=== PATIENT | female | born 1990 | race African-American/Black ===

== ENCOUNTER 2022-06-08 13:05 | Inpatient (IN) | payer OTHER ==
[2022-06-08] MEDS: DEXTROSE 5%-LACTATED RINGERS 1,000 ML IV SCH ×2 (14:30→17:00)
[2022-06-08 15:06] VITALS: BMI 40.1
[2022-06-08 15:20] LABS: BASO % 0.5 % (0-2.0); EOS % 0.3 % (0-4.5); HEMATOCRIT 39.8 % (32.4-45.2); HEMOGLOBIN 13.5 GM/dL (10.7-15.3); LYMPH % 13.2 % (8-40); MCH 30.7 pg (25.7-33.7); MCHC 33.8 g/dl (32.0-36.0); MEAN CELL VOLUME 90.9 fl (80-96); MEAN PLT VOLUME 8.3 fl (7.5-11.1); MONO % 6.4 % (3.8-10.2); NEUT % 79.6 % (42.8-82.8); PLATELET COUNT 238 10^3/uL (134-434); RBC 4.38 M/mm3 (3.60-5.2); RDW 14.7 % (11.6-15.6); WHITE BLOOD COUNT 8.5 K/mm3 (4.0-10.0)
[2022-06-08 15:31] LABS: INR 1.01 (0.83-1.09); PROTHROMBIN TIME (PATIENT) 11.6 SEC (9.7-13.0)
[2022-06-08 15:34] LABS: ACTIVATED PTT 28.9 SECONDS (25.2-36.5)
[2022-06-08 16:01] LABS: BLOOD UREA NITROGEN 6.8 mg/dL (7-18); CALCIUM 9.1 mg/dL (8.5-10.1)
[2022-06-08 16:05] LABS: CREATININE 0.6 mg/dL (0.55-1.3)
[2022-06-08] MEDS ORDERED: OXYTOCIN 30 UNITS in 0.9% NS 30 UNIT/500 ML INFUS.BAG IVPB ONE ×2 (16:14→20:34)
[2022-06-08] MEDS ORDERED: OXYTOCIN 20 UNITS in 0.9% NS 20 UNIT/1,000 ML INFUS.BAG IV ONE (18:00)
[2022-06-08] MEDS ORDERED: ACETAMINOPHEN INJECTION 100 ML IVPB ONE (18:00)
[2022-06-08] MEDS ORDERED: morphine SULFATE/PF 1 MG/2 ML (2cc Syringe - QUVA) ONE (18:02)
[2022-06-08] MEDS ORDERED: CITRIC ACID/SODIUM CITRATE 30 ML UNIT-DOSE CUP PO ONE (18:17)
[2022-06-08] MEDS ORDERED: PROPOFOL 20 ML ONE (18:49)
[2022-06-08] MEDS ORDERED: ROCURONIUM BROMIDE 50 MG/5 ML VIAL ONE (19:27)
[2022-06-08 20:01] LABS: CORD BASE EXCESS -0.7 mmol/L (0-2); CORD HCO3 26.2 mmHg (20-29); CORD PCO2 52.7 mmHg (30-78); CORD pH 7.315 (7.14-7.44)
[2022-06-08 20:03] LABS: CORD BASE EXCESS -0.4 mmol/L (0-2); CORD HCO3 25.8 mmHg (20-29); CORD PCO2 50.5 mmHg (30-78); CORD pH 7.327 (7.14-7.44)
[2022-06-08] MEDS ORDERED: HYDROmorphone *PCA* 10MG/50ML DISP.SYRIN ONE (20:27)
[2022-06-08] MEDS ORDERED: HYDROmorphone HCl 2 MG/ML VIAL ONE (20:28)
[2022-06-08] MEDS: OXYTOCIN 20 UNITS in 0.9% NS 20 UNIT/1,000 ML INFUS.BAG IV SCH (20:30)
[2022-06-08] MEDS ORDERED: ONDANSETRON 4 MG/2 ML VIAL IVPUSH PRN (20:54)
[2022-06-08] MEDS ORDERED: ACETAMINOPHEN 1000 MG/100 ML BAG IVPB PRN (20:57)
[2022-06-08] MEDS ORDERED: HYDROmorphone *PCA* 10MG/50ML DISP.SYRIN PCA SCH (21:00)
[2022-06-08] MEDS ORDERED: ACETAMINOPHEN 325 MG TABLET (FP) PO PRN (21:06)
[2022-06-08] MEDS: HEPARIN NA (PORCINE) 5,000 UNITS/ML 1ML VIAL SQ SCH (23:05)
[2022-06-09] MEDS: OXYTOCIN 20 UNITS in 0.9% NS 20 UNIT/1,000 ML INFUS.BAG IV SCH (05:33)
[2022-06-09 08:43] LABS: BASO % 0.3 % (0-2.0); HEMATOCRIT 40.6 % (32.4-45.2); HEMOGLOBIN 13.4 GM/dL (10.7-15.3); LYMPH % 5.5 % (8-40); MCH 30.3 pg (25.7-33.7); MEAN CELL VOLUME 91.8 fl (80-96); MEAN PLT VOLUME 8.9 fl (7.5-11.1); MONO % 5.1 % (3.8-10.2); NEUT % 89.1 % (42.8-82.8); PLATELET COUNT 215 10^3/uL (134-434); RBC 4.43 M/mm3 (3.60-5.2); RDW 14.9 % (11.6-15.6); WHITE BLOOD COUNT 15.5 K/mm3 (4.0-10.0)
[2022-06-09] MEDS ORDERED: oxyCODONE HCL 5 MG TABLET PO PRN (09:06)
[2022-06-09] MEDS: HEPARIN NA (PORCINE) 5,000 UNITS/ML 1ML VIAL SQ SCH ×2 (11:03→21:03)
[2022-06-09] MEDS: IBUPROFEN 600 MG TABLET (FP) PO PRN ×2 (16:29→22:38)
[2022-06-09] MEDS: SIMETHICONE 80 MG TAB.CHEW (FP) PO PRN ×2 (16:29→22:38)
[2022-06-10] MEDS: IBUPROFEN 600 MG TABLET (FP) PO PRN ×3 (05:36→18:12)
[2022-06-10] MEDS: SIMETHICONE 80 MG TAB.CHEW (FP) PO PRN ×3 (05:36→18:12)
[2022-06-10] MEDS: HEPARIN NA (PORCINE) 5,000 UNITS/ML 1ML VIAL SQ SCH ×2 (11:34→22:13)
[2022-06-10] MEDS: guaiFENesin/D-METHORPHAN HB 10 ML UNIT-DOSE CUPS PO PRN (17:51)
[2022-06-11] MEDS: guaiFENesin/D-METHORPHAN HB 10 ML UNIT-DOSE CUPS PO PRN ×2 (00:46→06:29)
[2022-06-11 08:37] LABS: BASO % 0.6 % (0-2.0); EOS % 0.7 % (0-4.5); HEMOGLOBIN 12.7 GM/dL (10.7-15.3); LYMPH % 13.4 % (8-40); MCH 31.7 pg (25.7-33.7); MCHC 34.3 g/dl (32.0-36.0); MEAN CELL VOLUME 92.4 fl (80-96); MEAN PLT VOLUME 7.9 fl (7.5-11.1); MONO % 6.5 % (3.8-10.2); NEUT % 78.8 % (42.8-82.8); PLATELET COUNT 225 10^3/uL (134-434); RDW 14.5 % (11.6-15.6); WHITE BLOOD COUNT 8.9 K/mm3 (4.0-10.0)
[2022-06-11] MEDS: HEPARIN NA (PORCINE) 5,000 UNITS/ML 1ML VIAL SQ SCH (10:39)
[2022-06-11 12:27] VITALS: BP 137/83; PULSE 78; RESP 16; TEMP 98.7
== END 2022-06-11 14:00 | disposition home or self-care (01) | DRG 540 ==
LOC: JLDR 13:05 → J3W 21:56
PROVIDERS: ADMIT Obstetrics & Gynecology Maternal & Fetal Medicine; ATTEND Obstetrics & Gynecology Maternal & Fetal Medicine
PROC: 10D00Z1 Extraction of Products of Conception, Low, Open Approach (ICD-10-PCS; principal; 2022-06-08)
DX: O13.4 Gestational [pregnancy-induced] hypertension without significant proteinuria, complicating childbirth (principal); O36.8130 Decreased fetal movements, third trimester, not applicable or unspecified; O32.1XX0 Maternal care for breech presentation, not applicable or unspecified; O99.214 Obesity complicating childbirth; E66.01 Morbid (severe) obesity due to excess calories; Z3A.39 39 weeks gestation of pregnancy; Z37.0 Single live birth
CPT/HCPCS: 36415; 36600; 80048; 82803; 85025; 85610; 85730; 86780; 86850; 86900; 86901; 88307-TC; 94010; C9803-CS; J1644; U0003; U0005

== ENCOUNTER 2023-09-18 16:28 | Emergency (ER) | payer OTHER ==
[2023-09-18 17:02] VITALS: BP 134/88; PULSE 70; RESP 18; TEMP 98.3; BMI 38.8
[2023-09-18] MEDS ORDERED: IBUPROFEN 600 MG TABLET (FP) PO ONE (18:21)
[2023-09-18] MEDS: IBUPROFEN 600 MG TABLET (FP) PO ONE (18:28)
[2023-09-18] MEDS: KETOROLAC TROMETHAMINE 30 MG/1 ML VIAL IM ONE (18:28)
== END 2023-09-18 19:32 | disposition home or self-care (01) ==
LOC: JER 16:28 → JERFT 16:28
DX: M79.10 Myalgia, unspecified site (principal); W10.9XXA Fall (on) (from) unspecified stairs and steps, initial encounter; W00.0XXA Fall on same level due to ice and snow, initial encounter
CPT/HCPCS: 73502-TC-RT-FY; 99283-25